=== PATIENT | male | born 1950 | race Caucasian/White ===

== ENCOUNTER 2018-07-13 09:53 | Emergency (ER) | payer MEDICARE ==
--- NOTE | 2018-07-13 10:13 | ED Physician Chart ---
ED Chief Complaint/HPI - Patient Information Date Seen:: 07/13/18 Time Seen:: 10:09 Chief Complaint:: Low back radiating to the LLE History of Present Illness:: 67 yo male had chronic low back pain radiating to the LLE for 1 month worsening for 2 days. The pain would be worsened by changing body position from sitting to standing or standing to sitting. Patient took Ibuprofen and Baclofen with minimal improvement. Patient also had numbness and tingling of the LLE. Denies urinary retention, incontinence or fever. Patient also denies any weakness of BLE. Allergies:: Allergies Allergy/AdvReac Type Severity Reaction Status Date / Time No Known Allergies Allergy Verified 07/13/18 10:03 Vitals:: Vital Signs - 8 hr 07/13/18 09:55 Temp 99.1 F HR 85 RR 18 BP 170/99 O2 Sat % 96 ED Review of Systems - Review of Systems General/Constitutional: No fever Skin: No rash Head: Headache Eyes: No pain ENT: No nasal drainage Neck: No neck pain Cardio Vascular: No chest pain Pulmonary: No SOB GI: No nausea, No vomiting Musculoskeletal: Back pain Neurological: Paresthesia ED Past Medical History - Past Medical History Past Medical History: HTN, Other (Obesity, pneumonia) Social History: Non Smoker, No Alcohol, No Drug Use Surgical History: None Family Medical History - Family Member Mother History Unknown: Yes ED Physical Exam - Physical Examination General/Constitutional: Awake, Alert Head: Atraumatic Eyes: PERRL, EOMI Skin: No skin lesions ENMT: Nasal exam nl Neck: No nuchal rigidity Respiratory: Clear to Auscultation Cardio Vascular: RRR, No murmur, gallop, rubs, NL S1 S2 GI: No tenderness/rebounding/guarding Other Extremities comments:: straight leg raise test negative bilaterally. No EHL weakness bilaterally Neuro/Psych: Alert/oriented ED Labs/Radiology/EKG Results - Radiology Results Results: Lumbar spine X ray: mild diffuse degenerative changes ED Assessment - Assessment General Assessment: Low back pain Possible mild left radiculopathy Hypertension Morbid obesity Assessment/Comments:: L-spine X ray Toradol 60mg IM ED Septic Shock - . Is Septic Shock (SBP<90, OR Lactate>4 mmol\L) present?: No - <6hrs of presentation: Vital Signs: Vital Signs - 8 hr 07/13/18 09:55 Temp 99.1 F HR 85 RR 18 BP 170/99 O2 Sat % 96 ED Reassessment (Disposition) - Reassessment Reassessment:: After Toradol IM, patient stated the low back pain improved significantly. D/c home Medrol dose pack F/u PCP for BP control and possible physical therapy Reassessment Condition:: Improved - Aftercare/Follow up Instructions Medication Prescribed:: Medrol dose pack 4mg, follow instruction for 6 days - Patient Disposition Discharge/Transfer:: Home
--- NOTE | 2018-07-13 11:55 | Diagnostic Imaging Report ---
Lumbar spine (3 views) HISTORY: Pain Detail is limited due to patient's size. Alignment is normal. Minimal narrowing of the L4-5 interspace. Small spur formation noted off the anterior margins of the bodies of all vertebrae. Hypertrophic changes seen about the facet joints at L4-5 and L5-S1. IMPRESSION: 1. Limited exam due to patient's size 2. Mild diffuse degenerative changes
== END 2018-07-13 10:50 | disposition home or self-care (01) ==
LOC: ER 09:53
DX: M54.5 Low back pain (principal); I10 Essential (primary) hypertension; E66.01 Morbid (severe) obesity due to excess calories
CPT/HCPCS: 99283; 96372; 72100; J1885; Z7502